=== PATIENT | female | born 1965 | race Caucasian/White ===

== ENCOUNTER → 2016-09-09 | Day surgery (SDC) | payer OTHER ==
[~2016-09-09] MED LIST: MELATONIN1 MG PO; MULTIVITAMINS1 EAC2 PO; NORCO 10/3251 TAB PO; SYNTHROID PO; XANAX1 MG PO
--- NOTE | ~2016-09-09 | OR ---
Unit #: [id number] #: [id number] Patient: MARIA R PATTERSON [id number] [address] [address] [id number] MR#: [id number] NAME: MARIA R PATTERSON ROOM: Date of Procedure: 09/09/2016 Admission Date: 09/09/2016 Surgeon: Goran Sanon M.D. : 1965 Attending Physician: Goran Sanon M.D. Primary Care Physician: Macho George M.D. OPERATIVE REPORT PREOPERATIVE DIAGNOSES Neck pain, cervical radiculopathy, degenerative cervical disk disease. POSTOPERATIVE DIAGNOSES Neck pain, cervical radiculopathy, degenerative cervical disk disease. PROCEDURE PERFORMED Cervical epidural steroid injection with intravenous sedation and fluoroscopic guidance for needle localization. INDICATIONS FOR PROCEDURE The patient is a 50-year-old female with neck and left upper extremity greater than right radicular pain due to degenerative disk disease. She has failed to settle with conservative treatment alone, so plan is for trial of epidural steroids. Risks and benefits of all which have been reviewed. DESCRIPTION OF PROCEDURE The patient was placed in the seated position. Standard monitors were applied. 3 mg of Versed were given for sedation and anxiolysis, which were adequate. Vital signs remained stable. Sterile prep and drape then of the cervical area was performed. The skin then at the C6 level was localized with 1% lidocaine. An 18-gauge Hustead needle was then advanced via hanging drop technique and fluoroscopic guidance in toward the epidural space. After confirming proper positioning with fluoroscopy and radiographic contrast, 80 mg of Depo-Medrol and 2 mL of 0.25% bupivacaine were deposited. The patient tolerated the procedure otherwise well and was discharged to the recovery room in stable condition. Dictated by... Goran Sanon M.D. LHP/modl TD: 09/10/2016 05:53 JOB #: [id number] Unit #: [id number] #: [id number] Patient: MARIA R PATTERSON OPERATIVE REPORT X Goran Sanon MD X PROCEDURE OPERATIVE NOTE
== END | disposition home or self-care (01) ==
LOC: CCSC 10:24
DX: M50.10 Cervical disc disorder with radiculopathy, unspecified cervical region (principal)
CPT/HCPCS: J1040; J2250